=== PATIENT | female | born 1935 | race Caucasian/White ===

== ENCOUNTER 2018-01-01 15:41 | Observation (INO) | payer MEDICARE, OTHER ==
[~2018-01-01] VITALS: Ht 162.6 cm; Wt 52.8 kg
[2018-01-01] MEDS ORDERED: ESTR1TAB15 PO (15:53)
[2018-01-01] MEDS ORDERED: LEVO25TA4 PO (15:53)
[2018-01-01] MEDS ORDERED: SIMV10TA3 PO (15:53)
[2018-01-01] MEDS ORDERED: AMLO10TA6 PO (15:53)
[2018-01-01] MEDS ORDERED: ASPI-515 PO (16:06)
[2018-01-01] MEDS ORDERED: SPIR100T4 PO (16:06)
[2018-01-01] MEDS ORDERED: SPIRONOLACT/HCTZ 25/25MG TABLET PO STA (16:45)
[2018-01-01 17:26] LABS: BASOPHILS # (AUTO) 0.02 x10^3/uL (0-0.1); BASOPHILS % (AUTO) 0 % (0-1); EOSINOPHILS # (AUTO) 0.09 x10^3/uL (0-0.4); EOSINOPHILS % (AUTO) 2 % (1-7); LYMPHOCYTES # (AUTO) 1.28 x10^3/uL (1-3.4); LYMPHOCYTES % (AUTO) 25 % (22-44); MD NO; MEAN CORPUSCULAR HEMOGLOBIN 28.4 pg (27.0-34.8); MEAN CORPUSCULAR HGB CONC 33.1 g/dL (32.4-35.8); MEAN CORPUSCULAR VOLUME 85.7 fL (80-100); MEAN PLATELET VOLUME 8.2 fL (7.4-10.4); MONOCYTES # (AUTO) 0.52 x10^3/uL (0.2-0.8); MONOCYTES % (AUTO) 10 % (2-9); NEUTROPHILS # (AUTO) 3.16 x10^3/uL (1.8-6.8); NEUTROPHILS % (AUTO) 62 % (42-75); PLATELET COUNT 370 x10^3/uL (130-400); RED BLOOD COUNT 5.19 x10^6/uL (3.82-5.3); RED CELL DISTRIBUTION WIDTH 13.6 % (9.6-15.2)
[2018-01-01 17:35] LABS: ALANINE AMINOTRANSFERASE 16 U/L (12-78); ALBUMIN 4.2 g/dL (3.4-5.0); ANION GAP 10 mmol/L (5-15); CALCIUM 9.8 mg/dL (8.5-10.1); CHLORIDE 104 mmol/L (98-107); CREATININE 0.89 mg/dL (0.55-1.02)
[2018-01-01 17:37] LABS: ALKALINE PHOSPHATASE 83 U/L (45-117); BILIRUBIN,TOTAL 0.7 mg/dL (0.2-1.0); TOTAL PROTEIN 8.6 g/dL (6.4-8.2)
[2018-01-01 17:57] VITALS: BP 151/82
[2018-01-01 19:06] VITALS: BP 166/76
[2018-01-01] MEDS ORDERED: SPIRONOLACTONE 25 MG TABLET PO ONE (21:00)
[2018-01-01] MEDS ORDERED: HYDROCHLOROTHIAZIDE 25 MG TABLET PO ONE (21:00)
[2018-01-01] MEDS: SIMVASTATIN 20 MG TABLET PO SCH (21:23)
[2018-01-02 01:40] VITALS: BP 155/85
[2018-01-02 03:21] LABS: MICROSCOPIC NOT IND
[2018-01-02 03:24] LABS: CULTURE INDICATED? NO
[2018-01-02 07:26] VITALS: BP 148/80
[2018-01-02] MEDS: ESTRADIOL 1 MG TABLET PO SCH (08:46)
[2018-01-02] MEDS: AMLODIPINE 10 MG TAB PO SCH (08:47)
[2018-01-02] MEDS: ASPIRIN 81 MG TABLET EC PO SCH (08:47)
[2018-01-02] MEDS: SPIRONOLACTONE 100 MG TABLET PO SCH ×2 (08:47→19:29)
[2018-01-02] MEDS ORDERED: LEVOTHYROXINE 112 MCG TABLET PO SCH (09:00)
[2018-01-02 13:15] VITALS: BP 146/84
[2018-01-02] MEDS: TRAZODONE 50MG TABLET PO PRN (19:28)
[2018-01-02] MEDS: SIMVASTATIN 20 MG TABLET PO SCH (19:29)
[2018-01-03] MEDS: LEVOTHYROXINE 75 MCG TABLET PO SCH (06:26)
[2018-01-03 07:46] VITALS: BP 121/75
[2018-01-03] MEDS: SPIRONOLACTONE 100 MG TABLET PO SCH ×2 (10:09→18:38)
[2018-01-03] MEDS: ASPIRIN 81 MG TABLET EC PO SCH (10:09)
[2018-01-03] MEDS: ESTRADIOL 1 MG TABLET PO SCH (10:09)
[2018-01-03] MEDS: AMLODIPINE 10 MG TAB PO SCH (10:09)
[2018-01-03 12:56] VITALS: BP 123/72
[2018-01-03 18:52] VITALS: BP 113/64
[2018-01-03] MEDS: SIMVASTATIN 20 MG TABLET PO SCH (19:25)
[2018-01-03] MEDS: ACETAMINOPHEN 325 MG TABLET PO PRN (21:46)
[2018-01-04 00:47] VITALS: BP 134/75
[2018-01-04] MEDS: LEVOTHYROXINE 75 MCG TABLET PO SCH (05:45)
[2018-01-04 06:58] VITALS: BP 136/72
[2018-01-04] MEDS: ESTRADIOL 1 MG TABLET PO SCH (08:32)
[2018-01-04] MEDS: AMLODIPINE 10 MG TAB PO SCH (08:33)
[2018-01-04] MEDS: ASPIRIN 81 MG TABLET EC PO SCH (08:33)
[2018-01-04] MEDS: SPIRONOLACTONE 100 MG TABLET PO SCH ×2 (08:33→17:59)
[2018-01-04 12:27] VITALS: BP 136/76
[2018-01-04 19:02] VITALS: BP 121/80
[2018-01-04] MEDS: TRAZODONE 50MG TABLET PO PRN (20:29)
[2018-01-04] MEDS: SIMVASTATIN 20 MG TABLET PO SCH (20:29)
[2018-01-05 01:28] VITALS: BP 130/75
[2018-01-05] MEDS: LEVOTHYROXINE 75 MCG TABLET PO SCH (06:03)
[2018-01-05 08:02] VITALS: BP 139/74
[2018-01-05] MEDS: AMLODIPINE 10 MG TAB PO SCH (09:24)
[2018-01-05] MEDS: SPIRONOLACTONE 100 MG TABLET PO SCH ×2 (09:24→17:05)
[2018-01-05] MEDS: ASPIRIN 81 MG TABLET EC PO SCH (09:24)
[2018-01-05 13:00] VITALS: BP 121/80
[2018-01-05 19:48] VITALS: BP 134/71
[2018-01-05] MEDS: SIMVASTATIN 20 MG TABLET PO SCH (20:41)
[2018-01-05] MEDS: TRAZODONE 50MG TABLET PO PRN (20:41)
[2018-01-06 00:32] VITALS: BP 127/81
[2018-01-06] MEDS: LEVOTHYROXINE 75 MCG TABLET PO SCH (06:21)
[2018-01-06 07:21] VITALS: BP 154/74
[2018-01-06] MEDS: ASPIRIN 81 MG TABLET EC PO SCH (08:42)
[2018-01-06] MEDS: AMLODIPINE 10 MG TAB PO SCH (08:42)
[2018-01-06] MEDS: SPIRONOLACTONE 100 MG TABLET PO SCH ×2 (08:42→16:28)
[2018-01-06 13:41] VITALS: BP 118/76
[2018-01-06 19:18] VITALS: BP 137/80
[2018-01-06] MEDS: TRAZODONE 50MG TABLET PO PRN (21:28)
[2018-01-06] MEDS: ACETAMINOPHEN 325 MG TABLET PO PRN (21:28)
[2018-01-06] MEDS: SIMVASTATIN 20 MG TABLET PO SCH (21:28)
[2018-01-07] MEDS: LEVOTHYROXINE 75 MCG TABLET PO SCH (05:12)
[2018-01-07 08:11] VITALS: BP 129/78
[2018-01-07] MEDS: ASPIRIN 81 MG TABLET EC PO SCH (10:51)
[2018-01-07] MEDS: SPIRONOLACTONE 100 MG TABLET PO SCH ×2 (10:51→17:12)
[2018-01-07] MEDS: AMLODIPINE 10 MG TAB PO SCH (10:51)
[2018-01-07] MEDS: ACETAMINOPHEN 325 MG TABLET PO PRN (12:18)
[2018-01-07 19:37] VITALS: BP 138/78
[2018-01-07] MEDS: SIMVASTATIN 20 MG TABLET PO SCH (21:10)
[2018-01-07] MEDS: TRAZODONE 50MG TABLET PO PRN (21:10)
[2018-01-08 01:35] VITALS: BP 123/63
[2018-01-08] MEDS: LEVOTHYROXINE 75 MCG TABLET PO SCH (05:36)
[2018-01-08] MEDS: AMLODIPINE 10 MG TAB PO SCH (08:04)
[2018-01-08] MEDS: ASPIRIN 81 MG TABLET EC PO SCH (08:04)
[2018-01-08] MEDS: SPIRONOLACTONE 100 MG TABLET PO SCH ×2 (08:04→17:21)
[2018-01-08 10:32] VITALS: BP 143/78
[2018-01-08 19:31] VITALS: BP 136/84
[2018-01-08] MEDS: SIMVASTATIN 20 MG TABLET PO SCH (21:39)
[2018-01-08] MEDS: TRAZODONE 50MG TABLET PO PRN (21:39)
[2018-01-09] MEDS: LEVOTHYROXINE 75 MCG TABLET PO SCH (05:45)
[2018-01-09 06:17] VITALS: BP 140/79
[2018-01-09] MEDS: AMLODIPINE 10 MG TAB PO SCH (08:10)
[2018-01-09] MEDS: ASPIRIN 81 MG TABLET EC PO SCH (08:10)
[2018-01-09] MEDS: SPIRONOLACTONE 100 MG TABLET PO SCH ×2 (08:10→17:00)
[2018-01-09 13:23] VITALS: BP 140/88
[2018-01-09] MEDS: TRAZODONE 50MG TABLET PO PRN (20:19)
[2018-01-09] MEDS: SIMVASTATIN 20 MG TABLET PO SCH (20:19)
[2018-01-09] MEDS: ACETAMINOPHEN 325 MG TABLET PO PRN (20:31)
[2018-01-10] MEDS: LEVOTHYROXINE 75 MCG TABLET PO SCH (05:45)
[2018-01-10 07:55] VITALS: BP 101/62
[2018-01-10] MEDS: ASPIRIN 81 MG TABLET EC PO SCH (09:00)
[2018-01-10 10:15] VITALS: BP 120/74
[2018-01-10] MEDS: SPIRONOLACTONE 100 MG TABLET PO SCH ×2 (10:16→18:23)
[2018-01-10] MEDS: AMLODIPINE 10 MG TAB PO SCH (10:16)
[2018-01-10] MEDS: TRAZODONE 50MG TABLET PO PRN (20:19)
[2018-01-10] MEDS: SIMVASTATIN 20 MG TABLET PO SCH (20:19)
[2018-01-11] MEDS: LEVOTHYROXINE 75 MCG TABLET PO SCH (06:10)
[2018-01-11 08:21] VITALS: BP 117/76
[2018-01-11] MEDS: AMLODIPINE 10 MG TAB PO SCH (08:59)
[2018-01-11] MEDS: SPIRONOLACTONE 100 MG TABLET PO SCH ×2 (08:59→16:56)
[2018-01-11] MEDS: ASPIRIN 81 MG TABLET EC PO SCH (08:59)
[2018-01-11 19:09] VITALS: BP 131/78
[2018-01-11] MEDS: SIMVASTATIN 20 MG TABLET PO SCH (19:40)
[2018-01-12 01:23] VITALS: BP 120/67
[2018-01-12] MEDS: LEVOTHYROXINE 75 MCG TABLET PO SCH (06:22)
[2018-01-12 06:42] VITALS: BP 118/64
[2018-01-12] MEDS: AMLODIPINE 10 MG TAB PO SCH (09:48)
[2018-01-12] MEDS: SPIRONOLACTONE 100 MG TABLET PO SCH ×2 (09:48→17:20)
[2018-01-12] MEDS: ASPIRIN 81 MG TABLET EC PO SCH (09:48)
[2018-01-12 12:40] VITALS: BP 130/56
[2018-01-12] MEDS: ACETAMINOPHEN 325 MG TABLET PO PRN (17:20)
[2018-01-12 19:04] VITALS: BP 146/83
[2018-01-12] MEDS: SIMVASTATIN 20 MG TABLET PO SCH (20:14)
[2018-01-12 23:47] VITALS: BP 136/79
[2018-01-13] MEDS: LEVOTHYROXINE 75 MCG TABLET PO SCH (05:38)
[2018-01-13 07:29] VITALS: BP 133/77
[2018-01-13] MEDS: AMLODIPINE 10 MG TAB PO SCH (08:00)
[2018-01-13] MEDS: SPIRONOLACTONE 100 MG TABLET PO SCH ×2 (08:00→16:31)
[2018-01-13] MEDS: ASPIRIN 81 MG TABLET EC PO SCH (08:00)
[2018-01-13 19:01] VITALS: BP 134/80
[2018-01-13 20:19] VITALS: BP 132/79
[2018-01-13] MEDS: SIMVASTATIN 20 MG TABLET PO SCH (22:58)
[2018-01-13] MEDS: ACETAMINOPHEN 325 MG TABLET PO PRN (23:30)
[2018-01-14 03:57] VITALS: BP 116/72
[2018-01-14] MEDS: LEVOTHYROXINE 75 MCG TABLET PO SCH (06:22)
[2018-01-14 07:05] VITALS: BP 112/70
[2018-01-14] MEDS: AMLODIPINE 10 MG TAB PO SCH (09:14)
[2018-01-14] MEDS: ASPIRIN 81 MG TABLET EC PO SCH (09:14)
[2018-01-14] MEDS: SPIRONOLACTONE 100 MG TABLET PO SCH ×2 (09:15→16:14)
[2018-01-14 19:03] VITALS: BP 136/81
[2018-01-14] MEDS: SIMVASTATIN 20 MG TABLET PO SCH (19:34)
[2018-01-15 03:02] VITALS: BP 143/77
[2018-01-15] MEDS: LEVOTHYROXINE 75 MCG TABLET PO SCH (06:23)
[2018-01-15 06:48] VITALS: BP 110/71
[2018-01-15] MEDS: SPIRONOLACTONE 100 MG TABLET PO SCH ×2 (07:41→16:57)
[2018-01-15] MEDS: ASPIRIN 81 MG TABLET EC PO SCH (07:41)
[2018-01-15] MEDS: AMLODIPINE 10 MG TAB PO SCH (07:41)
[2018-01-15 18:56] VITALS: BP 124/75
[2018-01-15] MEDS: SIMVASTATIN 20 MG TABLET PO SCH (20:07)
[2018-01-16 02:07] VITALS: BP 144/77
[2018-01-16] MEDS: LEVOTHYROXINE 75 MCG TABLET PO SCH (06:19)
[2018-01-16 08:15] VITALS: BP 121/71
[2018-01-16] MEDS: SPIRONOLACTONE 100 MG TABLET PO SCH ×2 (08:20→17:05)
[2018-01-16] MEDS: AMLODIPINE 10 MG TAB PO SCH (08:20)
[2018-01-16] MEDS: ASPIRIN 81 MG TABLET EC PO SCH (08:20)
[2018-01-16 19:31] VITALS: BP 131/78
[2018-01-16] MEDS: SIMVASTATIN 20 MG TABLET PO SCH (19:37)
[2018-01-17 01:30] VITALS: BP 150/77
[2018-01-17] MEDS: LEVOTHYROXINE 75 MCG TABLET PO SCH (06:12)
[2018-01-17] MEDS: AMLODIPINE 10 MG TAB PO SCH (07:13)
[2018-01-17] MEDS: SPIRONOLACTONE 100 MG TABLET PO SCH ×2 (07:14→17:39)
[2018-01-17] MEDS: ASPIRIN 81 MG TABLET EC PO SCH (07:14)
[2018-01-17 08:10] VITALS: BP 107/70
[2018-01-17 15:54] VITALS: BP 130/77
[2018-01-17] MEDS: SIMVASTATIN 20 MG TABLET PO SCH (19:30)
[2018-01-18] MEDS: LEVOTHYROXINE 75 MCG TABLET PO SCH (05:24)
[2018-01-18] MEDS: SPIRONOLACTONE 100 MG TABLET PO SCH ×2 (08:29→16:49)
[2018-01-18] MEDS: ASPIRIN 81 MG TABLET EC PO SCH (08:29)
[2018-01-18] MEDS: AMLODIPINE 10 MG TAB PO SCH (08:29)
[2018-01-18 13:53] VITALS: BP 126/69
[2018-01-18] MEDS: ACETAMINOPHEN 325 MG TABLET PO PRN (19:35)
[2018-01-18] MEDS: SIMVASTATIN 20 MG TABLET PO SCH (19:35)
[2018-01-19] MEDS: LEVOTHYROXINE 75 MCG TABLET PO SCH (05:47)
[2018-01-19 07:54] VITALS: BP 124/78
[2018-01-19 09:44] VITALS: BP 126/76
[2018-01-19] MEDS: ASPIRIN 81 MG TABLET EC PO SCH (09:50)
[2018-01-19] MEDS: SPIRONOLACTONE 100 MG TABLET PO SCH ×2 (09:50→17:00)
[2018-01-19] MEDS: AMLODIPINE 10 MG TAB PO SCH (09:50)
[2018-01-19 13:30] VITALS: BP 124/78
[2018-01-19 19:44] VITALS: BP 122/67
[2018-01-19] MEDS: SIMVASTATIN 20 MG TABLET PO SCH (20:41)
[2018-01-20 01:07] VITALS: BP 127/71
[2018-01-20] MEDS: LEVOTHYROXINE 75 MCG TABLET PO SCH (05:24)
[2018-01-20 07:28] VITALS: BP 113/69
[2018-01-20] MEDS: SPIRONOLACTONE 100 MG TABLET PO SCH ×2 (10:06→17:13)
[2018-01-20] MEDS: ASPIRIN 81 MG TABLET EC PO SCH (10:07)
[2018-01-20] MEDS: AMLODIPINE 10 MG TAB PO SCH (10:07)
[2018-01-20 12:54] VITALS: BP 112/76
[2018-01-20 19:21] VITALS: BP 112/63
[2018-01-20] MEDS: SIMVASTATIN 20 MG TABLET PO SCH (19:28)
[2018-01-21] MEDS: LEVOTHYROXINE 75 MCG TABLET PO SCH (06:00)
[2018-01-21 06:43] VITALS: BP 116/76
[2018-01-21] MEDS: AMLODIPINE 10 MG TAB PO SCH (11:30)
[2018-01-21] MEDS: ASPIRIN 81 MG TABLET EC PO SCH (11:30)
[2018-01-21] MEDS: SPIRONOLACTONE 100 MG TABLET PO SCH ×2 (11:30→17:31)
[2018-01-21] MEDS: SIMVASTATIN 20 MG TABLET PO SCH (19:39)
[2018-01-22] MEDS: LEVOTHYROXINE 75 MCG TABLET PO SCH (05:39)
[2018-01-22 08:17] VITALS: BP 106/70
[2018-01-22] MEDS: SPIRONOLACTONE 100 MG TABLET PO SCH ×2 (09:52→17:27)
[2018-01-22] MEDS: AMLODIPINE 10 MG TAB PO SCH (09:52)
[2018-01-22] MEDS: ASPIRIN 81 MG TABLET EC PO SCH (09:52)
[2018-01-22] MEDS: TRAZODONE 50MG TABLET PO PRN (19:40)
[2018-01-22] MEDS: SIMVASTATIN 20 MG TABLET PO SCH (19:40)
[2018-01-22 20:00] VITALS: BP 97/63
[2018-01-23] MEDS: LEVOTHYROXINE 75 MCG TABLET PO SCH (05:48)
[2018-01-23 07:06] VITALS: BP 106/71
[2018-01-23] MEDS: AMLODIPINE 10 MG TAB PO SCH (07:59)
[2018-01-23] MEDS: SPIRONOLACTONE 100 MG TABLET PO SCH ×2 (07:59→17:47)
[2018-01-23] MEDS: ASPIRIN 81 MG TABLET EC PO SCH (07:59)
[2018-01-23] MEDS: SIMVASTATIN 20 MG TABLET PO SCH (20:16)
[2018-01-23] MEDS: TRAZODONE 50MG TABLET PO PRN (20:16)
[2018-01-24] MEDS: LEVOTHYROXINE 75 MCG TABLET PO SCH (05:22)
[2018-01-24 07:22] VITALS: BP 126/78
[2018-01-24] MEDS: ASPIRIN 81 MG TABLET EC PO SCH (08:39)
[2018-01-24] MEDS: SPIRONOLACTONE 100 MG TABLET PO SCH ×2 (08:39→17:49)
[2018-01-24] MEDS: AMLODIPINE 10 MG TAB PO SCH (08:39)
[2018-01-24 19:01] VITALS: BP 122/73
[2018-01-24] MEDS: SIMVASTATIN 20 MG TABLET PO SCH (20:46)
[2018-01-25 00:26] VITALS: BP 119/67
[2018-01-25] MEDS: LEVOTHYROXINE 75 MCG TABLET PO SCH (06:13)
[2018-01-25 07:38] VITALS: BP 123/77
[2018-01-25] MEDS: ASPIRIN 81 MG TABLET EC PO SCH (08:16)
[2018-01-25] MEDS: AMLODIPINE 10 MG TAB PO SCH (08:16)
[2018-01-25] MEDS: SPIRONOLACTONE 100 MG TABLET PO SCH ×2 (08:16→16:38)
[2018-01-25] MEDS: ACETAMINOPHEN 325 MG TABLET PO PRN (16:38)
[2018-01-25 18:50] VITALS: BP 135/78
[2018-01-25] MEDS: SIMVASTATIN 20 MG TABLET PO SCH (20:42)
[2018-01-26] MEDS: ACETAMINOPHEN 325 MG TABLET PO PRN (02:12)
[2018-01-26] MEDS: LEVOTHYROXINE 75 MCG TABLET PO SCH (06:05)
[2018-01-26 07:40] VITALS: BP 131/72
[2018-01-26] MEDS: AMLODIPINE 10 MG TAB PO SCH (08:55)
[2018-01-26] MEDS: ASPIRIN 81 MG TABLET EC PO SCH (08:55)
[2018-01-26] MEDS: SPIRONOLACTONE 100 MG TABLET PO SCH ×2 (08:55→17:47)
[2018-01-26 19:14] VITALS: BP 137/84
[2018-01-26] MEDS: SIMVASTATIN 20 MG TABLET PO SCH (20:42)
[2018-01-26] MEDS: TRAZODONE 50MG TABLET PO PRN (20:43)
[2018-01-27] MEDS: LEVOTHYROXINE 75 MCG TABLET PO SCH (05:33)
[2018-01-27 07:33] VITALS: BP 114/74
[2018-01-27] MEDS: AMLODIPINE 10 MG TAB PO SCH (08:05)
[2018-01-27] MEDS: ASPIRIN 81 MG TABLET EC PO SCH (08:05)
[2018-01-27] MEDS: SPIRONOLACTONE 100 MG TABLET PO SCH ×2 (08:05→17:15)
[2018-01-27] MEDS: SIMVASTATIN 20 MG TABLET PO SCH (20:37)
[2018-01-27] MEDS: TRAZODONE 50MG TABLET PO PRN (20:37)
[2018-01-28] MEDS: LEVOTHYROXINE 75 MCG TABLET PO SCH (05:21)
[2018-01-28 07:14] VITALS: BP 109/72
[2018-01-28] MEDS: SPIRONOLACTONE 100 MG TABLET PO SCH ×2 (09:29→17:27)
[2018-01-28] MEDS: AMLODIPINE 10 MG TAB PO SCH (09:29)
[2018-01-28] MEDS: ASPIRIN 81 MG TABLET EC PO SCH (09:29)
[2018-01-28] MEDS: SIMVASTATIN 20 MG TABLET PO SCH (21:13)
[2018-01-28] MEDS: TRAZODONE 50MG TABLET PO PRN (21:13)
[2018-01-29] MEDS: LEVOTHYROXINE 75 MCG TABLET PO SCH (05:25)
[2018-01-29 07:17] VITALS: BP 118/74
[2018-01-29] MEDS: AMLODIPINE 10 MG TAB PO SCH (08:56)
[2018-01-29] MEDS: ASPIRIN 81 MG TABLET EC PO SCH (08:56)
[2018-01-29] MEDS: SPIRONOLACTONE 100 MG TABLET PO SCH ×2 (08:57→16:56)
[2018-01-29] MEDS: TRAZODONE 50MG TABLET PO PRN (20:14)
[2018-01-29] MEDS: SIMVASTATIN 20 MG TABLET PO SCH (20:14)
[2018-01-30] MEDS: LEVOTHYROXINE 75 MCG TABLET PO SCH (06:21)
[2018-01-30 07:44] VITALS: BP 120/80
[2018-01-30] MEDS: SPIRONOLACTONE 100 MG TABLET PO SCH ×2 (09:23→16:48)
[2018-01-30] MEDS: ASPIRIN 81 MG TABLET EC PO SCH (09:23)
[2018-01-30] MEDS: AMLODIPINE 10 MG TAB PO SCH (09:23)
[2018-01-30] MEDS ORDERED: LEVO75TA PO (14:38)
== END 2018-01-30 17:00 | disposition home or self-care (01) ==
LOC: ED 16:56 → EDIP 17:39 → INTOOBSV 17:39 → 3NE 17:50
PROVIDERS: ADMIT Family Medicine; ATTEND Family Medicine
DX: F02.80 Dementia in other diseases classified elsewhere, unspecified severity, without behavioral disturbance, psychotic disturbance, mood disturbance, and anxiety (principal); E03.9 Hypothyroidism, unspecified; G47.00 Insomnia, unspecified; I10 Essential (primary) hypertension; K59.00 Constipation, unspecified
CPT/HCPCS: 36415; 71045; 80053; 81003; 84443; 85025; 86480; 93005; 97161; 97165; 99284; G0378; G8978; G8979; G8980; 99285